=== PATIENT | male | born 1985 | race American Indian/Alaskan Native ===

== ENCOUNTER 2017-09-09 18:15 | Emergency (ER) | payer SELFPAY ==
[2017-09-09 19:41] VITALS: BP 143/79
[2017-09-09] MEDS ORDERED: MOTRIN PO ONE (21:35)
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
== END 2017-09-09 21:48 | disposition home or self-care (01) ==
LOC: ED 18:15
DX: M54.5 Low back pain (principal); R51 Headache; V89.2XXA Person injured in unspecified motor-vehicle accident, traffic, initial encounter; Y93.89 Activity, other specified; Y99.8 Other external cause status; Y92.488 Other paved roadways as the place of occurrence of the external cause
CPT/HCPCS: 99282